=== PATIENT | female | born 1990 | race Caucasian/White ===

== ENCOUNTER 2023-07-14 17:10 | Inpatient (IN) | payer BC ==
[~2023-07-14] VITALS: Ht 165.1 cm; Wt 52.2 kg
[2023-07-14 17:45] LABS: BASOPHILS % (AUTO) 0.6 % (0-1); EOSINOPHILS % (AUTO) 0.5 % (0-6); HEMATOCRIT 39.7 % (35.0-45.0); HEMOGLOBIN 13.3 g/dl (12.0-16.0); LYMPHOCYTES # (AUTO) 1.1 X10'3 (1.1-4.8); LYMPHOCYTES % (AUTO) 14.1 % (21-51); MEAN CORPUSCULAR HEMOGLOBIN 29.4 PG (27.0-31.0); MEAN CORPUSCULAR HGB CONC 33.5 g/dL (33.0-36.5); MEAN CORPUSCULAR VOLUME 87.8 FL (78-98); MEAN PLATELET VOLUME 7.6 FL (7.4-10.4); MONOCYTES # (AUTO) 0.5 X10'3 (0-0.9); NEUTROPHILS % (AUTO) 77.8 % (42-75); PLATELET COUNT 243 X10'3 (140-440); RED BLOOD COUNT 4.52 X10'6 (4.20-5.60); RED CELL DISTRIBUTION WIDTH 13.9 % (11.5-14.5); WHITE BLOOD COUNT 7.7 X10'3 (4.5-11.0)
[2023-07-14 17:49] LABS: ALANINE AMINOTRANSFERASE 22 U/L (12-78); ALBUMIN 4.3 G/DL (3.4-5.0); ALBUMIN/GLOBULIN RATIO 1.3 (1.1-1.5); ALKALINE PHOSPHATASE 77 IU/L (46-116); ANION GAP 9 (8-16); ASPARTATE AMINO TRANSFERASE 12 U/L (10-37); BILIRUBIN,TOTAL 0.4 MG/DL (0.1-1.0); BLOOD UREA NITROGEN 10 MG/DL (7-18); BUN/CREATININE RATIO 13.5 (10.0-20.0); CALCIUM 9.1 MG/DL (8.5-10.1); CHLORIDE 103 MMOL/L (99-107); CREATININE 0.74 MG/DL (0.40-0.90); GLUCOSE 101 MG/DL (70-104); POTASSIUM 3.4 MMOL/L (3.5-5.1); SODIUM 137 MMOL/L (135-145); TOTAL CARBON DIOXIDE 25.5 MMOL/L (24-32); TOTAL PROTEIN 7.7 G/DL (6.4-8.2); eCRCL 91 ML/MIN; eGFR > 90 ML/MIN
[2023-07-14 17:56] LABS: PRO BRAIN NATRIURETIC PEPTIDE 97 PG/ML (0-125)
[2023-07-14] MEDS ORDERED: normal saline 1000ML IV soln IVB ONE (19:40)
[2023-07-14] MEDS ORDERED: pantoprazole 40 MG vial IV ONE (19:40)
[2023-07-14] MEDS ORDERED: LORazepam 2 mg/ml vial IV ONE (19:40)
[2023-07-14] MEDS ORDERED: pantoprazole 40 MG/NS 100ML add-vantage BAG IV ONE (19:45)
[2023-07-14] MEDS ORDERED: temazepam 15mg capsule PO PRN (21:00)
[2023-07-14] MEDS ORDERED: potassium Cl 40MEQ/1/2NS 520ml 520 ML IV PRN (21:20)
[2023-07-14] MEDS ORDERED: magnesium hydroxide 30ml (MOM) UD suspension PO PRN (21:20)
[2023-07-14] MEDS ORDERED: metoclopramide 5 mg/ml inj IV PRN (21:20)
[2023-07-14] MEDS ORDERED: ondansetron 4mg rapidly disintigrating tab PO PRN (21:20)
[2023-07-14] MEDS ORDERED: ondansetron/PF 4mg/2ml inj IV PRN (21:20)
[2023-07-14] MEDS ORDERED: morphine 2 MG/ML inj. syringe IV PRN (21:20)
[2023-07-14] MEDS ORDERED: acetaminophen 325mg tablet PO PRN (21:20)
[2023-07-14] MEDS ORDERED: mag hydrox/Alum hydrox/simeth 30ml oral suspension PO PRN (21:20)
[2023-07-14] MEDS ORDERED: potassium Cl 20 mEq SR tablet PO PRN ×2 (21:20)
[2023-07-14] MEDS ORDERED: diphenhydrAMINE 25mg capsule PO PRN (21:20)
[2023-07-14] MEDS ORDERED: HYDROcodone/acetaminophen 5mg/325mg tablet PO PRN (21:20)
[2023-07-14] MEDS ORDERED: bisacodyl 10mg suppository rectal RC PRN (21:20)
[2023-07-14] MEDS ORDERED: diphenhydrAMINE 50 mg/ml inj IV PRN (21:20)
[2023-07-14 22:05] LABS: APTT 31 SECONDS (22-32); PROTHROMBIN TIME 11.1 SECONDS (9.0-12.0)
[2023-07-14 22:08] LABS: D-DIMER < 0.19 MG/L FEU (0-0.50); HEMOGLOBIN A1C 5.3 % (4.5-6.2)
[2023-07-14] MEDS: acetaminophen 325mg tablet PO PRN (22:13)
[2023-07-14 22:15] LABS: C-REACTIVE PROTEIN 2.89 MG/DL (0.0-0.5); CREATINE KINASE 73 U/L (26-192); PHOSPHORUS 3.8 MG/DL (2.3-4.5); PRO BRAIN NATRIURETIC PEPTIDE 92 PG/ML (0-125); THYROID STIMULATING HORMONE 1.45 ulU/ml (0.34-4.50)
[2023-07-14 22:23] LABS: LIPASE 30 U/L (16-77)
[2023-07-14 22:23] LABS: BILIRUBIN,URINE NEGATIVE (Neg); CLARITY,URINE SLIGHTLY CLOUDY (Clear); COLOR,URINE YELLOW (Yellow); GLUCOSE, URINE NEGATIVE (Neg); KETONES,URINE NEGATIVE (Neg); LEUKOCYTE ESTERASE ,URINE NEGATIVE (Neg); NITRITES, URINE NEGATIVE (Neg); OCCULT BLOOD,URINE NEGATIVE (Neg); PH,URINE 7.5 (4.8-8.0); PROTEIN,URINE NEGATIVE (Neg); URINE AMPHETAMINE SCREEN NEGATIVE (Neg); URINE BARBITUATE SCREEN NEGATIVE (Neg); URINE BENZODIAZEPINES SCREEN NEGATIVE (Neg); URINE CANNABINOID SCREEN NEGATIVE (Neg); URINE COCAINE SCREEN NEGATIVE (Neg); URINE OPIATE SCREEN NEGATIVE (Neg); URINE PHENCYCLIDINE SCREEN NEGATIVE (Neg); UROBILINOGEN,URINE 0.2 E.U/dL (0.2-1.0)
[2023-07-14 22:41] LABS: UA COLLECTION TYPE CLN CATCH MIDSTREAM
[2023-07-14 22:43] LABS: BACTERIA,URINE FEW /HPF (Neg); MUCUS STRANDS MANY /LPF (Neg); RBC,URINE 0-2 /HPF (0-2); SQUAMOUS EPITHELIAL CELL,UR MODERATE /LPF (FEW); TRANSITIONAL EPI CELLS,URINE FEW /HPF; WBC,URINE 0-4 /HPF (0-4)
[2023-07-14] MEDS: potassium cl 20mEq in 1/2 NS 1,000 ML IV SCH (23:53)
[2023-07-15 06:55] LABS: BASOPHILS % (AUTO) 0.4 % (0-1); EOSINOPHILS # (AUTO) 0.1 X10'3 (0-0.9); EOSINOPHILS % (AUTO) 0.8 % (0-6); HEMATOCRIT 36.5 % (35.0-45.0); HEMOGLOBIN 12.1 g/dl (12.0-16.0); LYMPHOCYTES % (AUTO) 13.9 % (21-51); MEAN CORPUSCULAR HEMOGLOBIN 29.3 PG (27.0-31.0); MEAN CORPUSCULAR HGB CONC 33.3 g/dL (33.0-36.5); MEAN PLATELET VOLUME 7.6 FL (7.4-10.4); MONOCYTES # (AUTO) 0.7 X10'3 (0-0.9); MONOCYTES % (AUTO) 9.5 % (2-12); NEUTROPHILS # (AUTO) 5.7 X10'3 (1.8-7.7); NEUTROPHILS % (AUTO) 75.4 % (42-75); PLATELET COUNT 202 X10'3 (140-440); RED BLOOD COUNT 4.15 X10'6 (4.20-5.60); RED CELL DISTRIBUTION WIDTH 13.8 % (11.5-14.5); WHITE BLOOD COUNT 7.5 X10'3 (4.5-11.0)
[2023-07-15 07:08] LABS: ALANINE AMINOTRANSFERASE 16 U/L (12-78); ALBUMIN 3.3 G/DL (3.4-5.0); ALBUMIN/GLOBULIN RATIO 1.1 (1.1-1.5); ALKALINE PHOSPHATASE 61 IU/L (46-116); ANION GAP 7 (8-16); ASPARTATE AMINO TRANSFERASE 12 U/L (10-37); BILIRUBIN,TOTAL 0.3 MG/DL (0.1-1.0); BLOOD UREA NITROGEN 8 MG/DL (7-18); BUN/CREATININE RATIO 13.6 (10.0-20.0); CALCIUM 8.3 MG/DL (8.5-10.1); CHLORIDE 106 MMOL/L (99-107); CHOL/HDL RATIO 2.2 (0.00-4.99); CHOLESTEROL 98 MG/DL (0-200); CREATININE 0.59 MG/DL (0.40-0.90); GLUCOSE 111 MG/DL (70-104); HDL CHOLESTEROL 44 MG/DL (35-60); LDL CHOLESTEROL 49 MG/DL (50-100); POTASSIUM 3.8 MMOL/L (3.5-5.1); SODIUM 138 MMOL/L (135-145); TOTAL CARBON DIOXIDE 25.2 MMOL/L (24-32); TOTAL PROTEIN 6.4 G/DL (6.4-8.2); TRIGLYCERIDES 36 MG/DL (20-135); eCRCL 114 ML/MIN; eGFR > 90 ML/MIN
[2023-07-15] MEDS: acetaminophen 325mg tablet PO PRN (07:25)
[2023-07-15] MEDS ORDERED: heparin, porcine 5000 units/ml vial SQ SCH (08:00)
[2023-07-15] MEDS ORDERED: docusate sod 100mg capsule PO SCH (08:00)
[2023-07-15 10:56] VITALS: BP 108/75; PULSE 75; RESP 15; TEMP 97.7; O2SAT 98
[2023-07-15 11:03] VITALS: RESP 15; O2SAT 98
[2023-07-15] MEDS: potassium cl 20mEq in 1/2 NS 1,000 ML IV SCH (11:53)
[2023-07-15 12:03] VITALS: BP 108/75; PULSE 75; RESP 15; TEMP 98.6; O2SAT 98
[2023-07-15] MEDS ORDERED: NO HOME MEDS (13:54)
[2023-07-15] MEDS ORDERED: ASPI-1265 PO (16:00)
== END 2023-07-15 17:34 | disposition home or self-care (01) | DRG 149 ==
LOC: ER 17:11 → ED HOLD 21:38 → PCU 3S 07-15 10:20 → SUR 3N 07-15 16:46 → PCU 3S 07-15 16:47
PROVIDERS: ADMIT Family Medicine; ATTEND Internal Medicine
DX: R42 Dizziness and giddiness (principal); R55 Syncope and collapse; E87.6 Hypokalemia; R26.9 Unspecified abnormalities of gait and mobility; Z79.82 Long term (current) use of aspirin
CPT/HCPCS: 36415; 70551; 71045; 80053; 80061; 80305; 81001; 82550; 83036; 83690; 83735; 83880; 84100; 84443; 84484; 85025; 85379; 85610; 85651; 85730; 86140; 87081; 93880; 97161; 99285; A6258; C9113; G0378; J3480; J7030